=== PATIENT | female | born 1995 | race Caucasian/White ===

== ENCOUNTER 2023-07-13 18:42 | Emergency (ER) | payer BC, SELFPAY ==
--- NOTE | ~2023-07-13 | XR_ITS ---
Exams: Dorsal spine 3 views, lumbosacral spine 3 views, bilateral RIBS 6 views HISTORY: Fall. Pain. FINDINGS: No deformity of the thoracic or lumbar spine. Limited detail but no subluxation. Endplates intact. Transverse processes intact. Rib imaging bilaterally demonstrates notable shadows. No deformity. No pleural disease or pneumothorax. XR/XR ribs BI min 4V w CXR1V IMPRESSION: 1. No fracture seen. 2. No rib deformity.
--- NOTE | ~2023-07-13 | XR_ITS ---
Exams: Dorsal spine 3 views, lumbosacral spine 3 views, bilateral RIBS 6 views HISTORY: Fall. Pain. FINDINGS: No deformity of the thoracic or lumbar spine. Limited detail but no subluxation. Endplates intact. Transverse processes intact. Rib imaging bilaterally demonstrates notable shadows. No deformity. No pleural disease or pneumothorax. XR/XR lumbar spine 2-3V IMPRESSION: 1. No fracture seen. 2. No rib deformity.
--- NOTE | ~2023-07-13 | CT_ITS ---
CT CERVICAL SPINE WITHOUT CONTRAST CLINICAL INFORMATION: Fall with neck pain. COMPARISON: None available. TECHNIQUE: Multidetector CT acquisition of the cervical spine obtained without contrast. This CT examination was performed using dose optimization techniques as appropriate, variously including the following: *Automated exposure control *Adjustment of mA and/or kV according to patient size (this includes techniques or standardized protocols for targeted exams where dose is matched to indication/reason for exam; i.e. extremities or head) *Use of iterative reconstruction technique FINDINGS: Cervical alignment is maintained. Vertebral body heights are preserved. The disc volumes are normal. There are no acute fractures and there are no acute subluxations. There is no prevertebral soft tissue swelling. CT/CT cervical spine wo IV con IMPRESSION: No acute osseous findings within the cervical spine.
--- NOTE | ~2023-07-13 | XR_ITS ---
Exams: Dorsal spine 3 views, lumbosacral spine 3 views, bilateral RIBS 6 views HISTORY: Fall. Pain. FINDINGS: No deformity of the thoracic or lumbar spine. Limited detail but no subluxation. Endplates intact. Transverse processes intact. Rib imaging bilaterally demonstrates notable shadows. No deformity. No pleural disease or pneumothorax. XR/XR thoracic spine 2V IMPRESSION: 1. No fracture seen. 2. No rib deformity.
[2023-07-13 19:09] VITALS: BP 126/75; PULSE 74; RESP 16; TEMP 36.9; O2SAT 100; BMI 33.9
[2023-07-13 19:47] VITALS: BP 128/74; PULSE 72; RESP 18; TEMP 36.8; O2SAT 100
--- NOTE | 2023-07-13 20:54 | ED_ITS ---
HPI - General Adult General Chief complaint: Back Pain/Injury Stated complaint: fall yesterday, back pain Time Seen by Provider: 07/13/23 19:47 Source: patient Mode of arrival: ambulatory Limitations: no limitations History of Present Illness HPI narrative: Patient is a 28-year-old female presenting to the emergency department with complaint of neck and back pain after a slip and fall down 5 stairs yesterday. Patient denies hitting head, denies loss of consciousness. Denies headaches or changes in vision since falling. Reports that neck pain is worse with range of motion. States back pain is worse with sitting, laying. Also complaining of bilateral posterior rib pain worse with inspiration. Denies any radiation of pain to extremities. Denies any numbness or tingling to extremities. Denies any saddle anesthesia or bowel or bladder incontinence. MD complaint: neck and back pain Onset (ago): day(s) Location: neck and back Severity: moderate Quality: aching Pain Consistency: colicky Relieving factors: rest Exacerbating factors: movement Associated symptoms: denies other symptoms Treatments prior to arrival: NSAID Related Data Previous Rx's Medication Instructions Recorded cyclobenzaprine 5 mg tablet 5 mg PO TID PRN muscle spasm #10 07/13/23 tabs lidocaine 5 % topical patch 1 patch topical DAILY #15 ea 07/13/23 Allergies Allergy/AdvReac Type Severity Reaction Status Date / Time No Known Allergies Allergy Verified 07/13/23 19:09 [No Known Allergies*] Review of Systems Review of Systems: As per HPI. Yes all other systems are reviewed and are negative Constitutional: Constitutional: Reports as per [facility] Social History Social History (System 08/07/20 @ 08:57 by Hue Rushing) Alcohol intake: current Alcohol intake frequency: holidays/special occasions only Smoked in Last 30 Days: No Use of substances other than those prescribed or required for medical reasons: No Advance Directives: No Patient : No Physical Exam ED Vital Signs: Vital Signs - 24 hr 07/13/23 19:09 07/13/23 19:47 Temperature 98.5 F 98.3 F Pulse Rate 74 72 Respiratory Rate 16 18 Blood Pressure 126/75 128/74 Pulse Oximetry 100 100 Oxygen Delivery Method Room Air Room Air BMI result Body Mass Index 33.9 Vital signs have been reviewed and appear to be correct. Blood pressure normal. Heart rate normal. Respiratory rate normal. Temperature normal. Oxygen saturation normal. Const General: cooperative, healthy appearing and no acute distress Orientation/consciousness: oriented to person, oriented to place, oriented to time and patient oriented x3 Limitations: no limitations HENMT Head: Yes normal to inspection, Yes normocephalic, Yes atraumatic, No Carias's sign, No raccoon eyes and No periorbital ecchymosis Ears: external ears normal General nose exam: Normal external nose present Face and sinus: Yes face symmetric Mouth: oropharynx normal and moist mucous membranes Throat: Yes uvula midline Eyes Pupils: Equal, round and reactive pupils present Neck Neck: Yes normal visual inspection and Yes supple Chest Chest palpation & inspection: normal inspection of the chest and normal palpation of entire chest wall Resp Effort & Inspection: normal respiratory effort and able to speak in complete sentences Auscultation: clear to auscultation bilaterally Cardio Rate: regular rate Rhythm: regular rhythm Heart sounds: S1 normal heart sound present and S2 normal heart sound present GI Palpation (GI): Soft to palpation and nontender Auscultation: normoactive bowel sounds General: Yes no CVA tenderness Back/Spine/Pelvis Back: no CVA tenderness Cervical Spine: normal cervical lordosis, cervical ROM normal, pain with cervical ROM, No Cervical spine tenderness and No step off deformity Thoracic/Lumbar Spine: thoracic and lumbar spine normal to inspection, thoraco- lumbar ROM normal, straight leg raise negative bilaterally, pain with thoraco- lumbar ROM and paraspinal muscle tenderness bilaterally in the mid thoracic, in the lower thoracic, in the upper lumbar and in the mid lumbar Pelvis: no pain with anterior-posterior compression and no pain with lateral compression Skin General skin exam: elasticity normal and turgor normal Neuro General: oriented to person, oriented to place, oriented to time, patient oriented x3, gait normal, tone normal, moves all extremities, Normal light touch and pain sensation, no focal motor deficits and CN's II-XI intact bilaterally Cranial nerves: Yes Equal, round and reactive pupils present Cognition (Neuro): normal cognition Motor exam (neuro): 5/5 motor strength present throughout, Normal motor muscle tone present throughout and Motor abnormalities not present Sensory Exam: Normal double simultaneous stimulation for sensation Extrem General: Yes full ROM, Yes no pedal edema and Yes no calf tenderness Psych Mental Status: mental status grossly normal Affect: normal affect Thought process: Normal thought process present Medical Decision Making Medical Decision Making MDM Narrative: Patient is a 28-year-old female presenting to the emergency department with complaint of neck and back pain after a slip and fall down 5 stairs yesterday. On exam patient is awake, A+Ox3, VS WNL, afebrile, normal neurological exam without focal deficits, physical exam findings as above. Given reported symptoms and physical exam findings, initial differential includes cervical strain, thoracic strain, lumbar strain, vertebral fracture. X-ray/CT notable for no acute fractures. My interpretation is in agreement with the radiol ogist's interpretation. Advised patient to alternate Tylenol and ibuprofen, will prescribe cyclobenzaprine as needed for muscle spasms as well as topical lidocaine patches. Return precautions discussed at bedside. Instructed patient to follow-up with primary care provider. Patient verbalized understanding of and agreement with plan. Differential Diagnosis Differential Diagnoses: The differential diagnosis associated with the presentation includes As per MDM. Independent Interpretation I performed an independent interpretation of an: Plain X-Ray and CT Scan Interpretation: No rib or vertebral fracture, no acute fracture on CT C-spine Radiology Impression Discussion of test interpretation with radiology: I have reviewed the radiologist's reading. Radiologist Impression: XR/XR thoracic spine 2V IMPRESSION: 1. No fracture seen. 2. No rib deformity. CT/CT cervical spine wo IV con IMPRESSION: No acute osseous findings within the cervical spine. External Record Review External record reviewed: Inpatient record, Office record and Outpatient record Prescription Management I considered prescription management with: Pain Medication and Other Discharge Plan Discharge Clinical Impression: Strain of lumbar region Qualifiers: Encounter type: initial encounter Qualified Code(s): S39.012A - Strain of muscle, fascia and tendon of lower back, initial encounter Thoracic back pain Qualifiers: Chronicity: acute Back pain laterality: bilateral Qualified Code(s): M54.6 - Pain in thoracic spine Cervical muscle strain Qualifiers: Encounter type: initial encounter Qualified Code(s): S16.1XXA - Strain of muscle, fascia and tendon at neck level, initial encounter Patient Disposition: Home, Self-Care Instructions: Cervical Strain (DC), Muscle Strain (DC), Low Back Strain (ED) Additional Instructions: You were evaluated in the emergency department today for back pain. Your evaluation did not show signs of medical conditions requiring emergent intervention at this time. We recommended that you use ibuprofen or Tylenol per package directions every 6 hours as needed for pain. If necessary, you can alternate these medications so that you take one medication every 3 hours. For instance, at noon take ibuprofen, then at 3:00 p.m. take Tylenol, then at 6:00 p.m. take ibuprofen. You have been prescribed a muscle relaxer which you may take every 8 hours as needed for spasms. You have been prescribed 5% topical lidocaine patches which you can wear for up to 12 hours in a 24 hour period. Do not apply heat directly over the patches. Please schedule an appointment for follow-up with your primary care physician this week for further evaluation of your symptoms. Return to the emergency department if you experience worsening back pain, difficulty walking, fevers, numbness, tingling, incontinence, groin numbness or tingling, or any other concerning symptoms. Prescriptions: New cyclobenzaprine 5 mg tablet 5 mg PO TID PRN (Reason: muscle spasm) Qty: 10 0RF lidocaine 5 % adhesive patch,medicated 1 patch topical DAILY Qty: 15 0RF Rx Instructions: leave on most painful area for up to 12 hrs Interventions: ED Discharge Assessment Last Done: 07/13/23 22:05 Discharge Date/Time: 07/13/23 22:07
== END 2023-07-13 22:07 | disposition home or self-care (01) ==
PROVIDERS: Emergency Provider Emergency Medicine; PCP Physician Assistant
DX: S39.012A Strain of muscle, fascia and tendon of lower back, initial encounter (principal); S16.1XXA Strain of muscle, fascia and tendon at neck level, initial encounter; M54.6 Pain in thoracic spine; M54.2 Cervicalgia; R51.9 Headache, unspecified; R07.81 Pleurodynia; W01.10XA Fall on same level from slipping, tripping and stumbling with subsequent striking against unspecified object, initial encounter; Y93.9 Activity, unspecified; Y92.9 Unspecified place or not applicable; Y99.9 Unspecified external cause status
CPT/HCPCS: 71111; 72070; 72100; 72125; 99284

== ENCOUNTER 2024-01-05 11:49 | Outpatient (AMB) | payer BC, SELFPAY ==
--- NOTE | 2024-01-05 13:00 | MHC.OFFWIV ---
Intake Vital Signs 01/05/24 13:02 Height 5 ft 6 in Weight 212 lb BMI 34.2 BP 110/70 Blood Pressure Location Lt brachial Position Sitting Pulse 88 Pulse Source Pulse Oximeter Temp 97.7 F Temp Source Temporal Artery Scan Pulse Oximetry (%) 99 Oxygen Delivery Method Room Air Intake Visit Reasons: [employer] Sore throat (masked) Intake Note: pt is here today for sore throat started Friday Patient Tobacco Use Status: Never used Tobacco Allergies No Known Allergies [No Known Allergies*] Allergy (Verified 01/05/24 13:05) Do you need a note to return to daycare/school/sports/work: No HPI HPI Comments History of Present Illness Details Patient presents to the walk-in today for sick visit Complaining of sore throat for last 2 days Patient was treated for strep throat recently, completed 10 day course of amoxicillin 12 days ago Symptoms had resolved but sore throat returned 2 days ago She had been taking all conservative measures including washing pillow cases in changing toothbrush as directed yet symptoms returned and both children at home have also recently been positive for strep throat and completed courses of antibiotics Tolerating p.o., denies nausea vomiting or diarrhea Denies fevers, chills, shortness of breath, chest pain, palpitations, abdominal pain, headache PFSH Social History (System 08/07/20 @ 08:57 by Hue Rushing) Alcohol intake: current Alcohol intake frequency: holidays/special occasions only Patient Tobacco Use Status: Never used Tobacco Review of Systems Const All systems reviewed & are unremarkable except as noted in HPI and below Physical Exam Vital Signs: Last Vital Signs Temp 97.7 F 01/05/24 13:02 Pulse 88 01/05/24 13:02 BP 110/70 01/05/24 13:02 Pulse Ox 99 01/05/24 13:02 Oxygen Delivery Method Room Air 01/05/24 13:02 BMI result Body Mass Index 34.2 General: awake, alert, oriented. Answers questions appropriately. Fully engaged in examination. Skin: warm, dry, intact HEENT: TMs intact bilaterally, no redness. Posterior pharynx erythematous with without visible exudate. Enlarged tonsils bilaterally. Moist oral mucosa. Sclera without icterus or injection. Cardiac: External chest normal in appearance. Respiratory: LSCTAB. Abdomen: without gross distension. Neurological: Oriented to person, place, time and situation. Thought process intact. Psychiatric: Appropriate mood and affect. Good judgment and insight. Results AMB Rapid Strep AMB Rapid Strep Positive Last Edit by Amparo Avendano on 01/05/24 13:20 Results Reviewed Results Reviewed: Rapid strep positive Assessment & Plan Assessment & Plan (1) Strep pharyngitis: Code(s): J02.0 - Streptococcal pharyngitis Plan Patient presented to the walk-in today with complaints of sore throat for last 2 days Rapid strep positive Patient completed 10 day course of amoxicillin less than 2 weeks ago. New Rx for Z-Benoit as directed. Rest, drink plenty of fluids. Tylenol or Motrin as needed Discussed preventative measures including no sharing of drinks, utensils or kissing. Dispose of tooth brush every 3 days and at completion of the antibiotics. All questions and concerns were answered, patient agrees with plan Follow with primary care or return to the clinic for any new or worsening symptoms Medications: New azithromycin For 250 mg dose pack: take 500 mg today (day 1), then 250 mg for 4 days (days 2-5) PO 6 tabs 0RF Coding Level of Care Code New Pt Level 3 (30088) Diagnoses Strep pharyngitis J02.0
[2024-01-05 13:02] VITALS: BP 110/70; PULSE 88; TEMP 36.5; O2SAT 99; BMI 34.2
== END 2024-01-05 14:56 | disposition home or self-care (01) ==
PROVIDERS: PCP Physician Assistant; Visit Provider Registered Nurse Emergency
DX: J02.0 Streptococcal pharyngitis (principal); J02.9 Acute pharyngitis, unspecified
CPT/HCPCS: 87880; 99203